=== PATIENT | male | born 1985 | race Caucasian/White ===

== ENCOUNTER 2020-08-17 18:25 | Emergency (ER) | payer OTHER ==
[~2020-08-17] VITALS: Ht 177.8 cm; Wt 83.9 kg
--- NOTE | ~2020-08-17 | EKG ---
[place] [address] ELECTROCARDIOGRAM REPORT Name: DENNIS HENAO Room: [facility]#: [id number] Admission: 08/17/20 Attend Phys: Discharge: 08/17/20 Date of : 89 Date of Service: 08/17/202003 Report #: [id number] THIS REPORT FOR: //name// [facility] ED Test Date: 2020-08-17 Test Time: 20:04:59 Pat Name: DENNIS HENAO Department: Room: Gender: [employer]: [facility] : 1985 Requested By: Emy Garces Order Number: [id number] MD: Measurements Intervals [place] Rate: 58 P: 69 KS: 215 QRS: -37 QRSD: 133 T: 48 QT: 444 QTc: 437 Interpretive Statements Sinus rhythm Prolonged [place] interval Right bundle branch block Lateral infarct, acute ST elevation, consider inferior injury No previous ECG available for comparison [email or web address] By: 03 03 Epiphany EpiphanyMD /EPI
[2020-08-17] MEDS ORDERED: ALEVE220 M1 PO (18:48)
[2020-08-17 19:05] LABS: URINE BILIRUBIN NEGATIVE (Negative); URINE BLOOD NEGATIVE (Negative); URINE CLARITY CLEAR; URINE COLOR YELLOW; URINE GLUCOSE-RANDOM NEGATIVE (Negative); URINE KETONES NEGATIVE (Negative); URINE LEUKOCYTES-REFLEX NEGATIVE (Negative); URINE NITRITE-REFLEX NEGATIVE (Negative); URINE PROTEIN NEGATIVE (Negative); URINE SPECIFIC GRAVITY 1.015 (1.005-1.030); URINE UROBILINOGEN 0.2 E.U./dl (0.2-1.0)
[2020-08-17 19:28] LABS: ABSOLUTE BASOPHILS 0.1 thou/uL (0.0-0.2); ABSOLUTE EOSINOPHILS 0.2 thou/uL (0.0-0.7); ABSOLUTE LYMPHOCYTES 3.3 thou/uL (0.8-5.3); ABSOLUTE MONOCYTES 1.3 thou/uL (0.0-1.2); ABSOLUTE NEUTROPHILS 7.2 thou/uL (1.6-8.1); BASOPHILS 0.5 %; EOSINOPHILS 1.3 %; HEMATOCRIT 42.9 % (42.0-52.0); HEMOGLOBIN 14.7 gm/dL (14.0-18.0); LYMPHOCYTES 27.4 %; MCH 31.4 pg (26.0-34.0); MCHC 34.2 g/dL (28.0-37.0); MCV 91.8 fL (80.0-100.0); MONOCYTES 10.7 %; MPV 7.1 fl. (7.2-11.1); NUCLEATED RBCS 0 /100WBC; PLATELET COUNT* 299 thou/uL (150-400); POLYS 60.1 %; RBC 4.68 mil/uL (4.50-6.00); RDW-CV 12.7 % (10.5-14.5)
[2020-08-17 19:32] LABS: CALCIUM 8.8 mg/dL (8.5-10.1); CREATININE 1.1 mg/dL (0.6-1.3); POTASSIUM 3.8 mmol/L (3.5-5.1)
[2020-08-17 19:37] LABS: ALBUMIN 4.3 g/dL (3.4-5.0); TOTAL PROTEIN 7.6 g/dL (6.4-8.2)
[2020-08-17 21:39] VITALS: BP 146/67
== END 2020-08-17 21:41 | disposition home or self-care (01) ==
LOC: M.ERS 18:25
PROVIDERS: Nurse Practitioner Family
DX: I45.10 Unspecified right bundle-branch block (principal); Z90.89 Acquired absence of other organs

== ENCOUNTER → 2020-11-24 | Outpatient (CLI) | payer BC, OTHER ==
[~2020-11-24] MED LIST: ALEVE220 M1 PO
== END ==
LOC: M.MRI 13:30
PROVIDERS: ATTEND Orthopaedic Surgery
DX: S83.241A Other tear of medial meniscus, current injury, right knee, initial encounter (principal); M25.861 Other specified joint disorders, right knee; X58.XXXA Exposure to other specified factors, initial encounter; Y93.89 Activity, other specified; Y92.89 Other specified places as the place of occurrence of the external cause; Y99.8 Other external cause status